=== PATIENT | female | born 1960 ===

== ENCOUNTER 2025-08-27 06:38 | Day surgery (SDC) | payer OTHER, SELFPAY ==
[2025-08-14 10:49] LABS: Hematocrit 42.6 % (37.0-47.0); Hemoglobin 13.4 g/dL (12.0-16.0); Mean Corp Hgb Conc. 31.5 g/dL (33.0-37.0); Mean Corpuscular Volume 87.7 fL (81.0-99.0); Platelet Count 355 10^3/uL (130-400); Red Cell Dist. Width 12.7 % (11.5-14.5)
[2025-08-14 11:40] LABS: ALT (SGPT) 16 U/L (0-35); AST (SGOT) 20 U/L (14-36); Albumin 4.8 g/dl (3.5-5.0); Alkaline Phosphatase 81 U/L (38-126); Blood Urea Nitrogen 12 mg/dl (7-17); Calcium 10.4 mg/dl (8.4-10.2); Carbon Dioxide 27 mmol/L (22-30); Chloride 105 mmol/L (98-107); Glucose 90 mg/dl (70-99); Potassium 5.3 mmol/L (3.5-5.1); Sodium 137 mmol/L (135-145); Total Protein 7.8 g/dl (6.3-8.2); eGFR > 60.00
[2025-08-14 13:55] VITALS: BMI 24.5
[2025-08-27] VITALS (16 sets, daily range): BP systolic 94–122; BP diastolic 56–84; BMI 24.5
[2025-08-27] MEDS: TYLENOL 1000 MG PO (12:43)
--- NOTE | 2025-08-27 12:55 | HP.FOC2 ---
Focused History & Physical
Chief Complaint
HPI:
Chief Complaint: Symptomatic cholelithiasis
HPI / Indication for Planned Procedure: Patient is a 65-year-old female who this past December awoke from sleep at 2 AM with acute onset of severe epigastric abdominal pain bandlike in the upper abdomen. Emergency department evaluation was notable for
cholelithiasis without biliary ductal dilation. 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 Upper endoscopy identified a small hiatal hernia. In the setting of her episode of symptomatic cholelithiasis patient
presents today for laparoscopic cholecystectomy.
Relevant Past Medical History: Other (Hypertension, hypercholesterolemia, GERD)
Relevant Social History: Negative
Relevant Family History: Negative
Relevant Past Surgical History: Positive for (Tubal ligation, tonsillectomy, repair right wrist nerve)
Review of Systems
Review of Pertinent Systems: All Systems Negative
Medication
See Medication form for detailed medications: Yes
Medication List (including Herbals & OTC):
amlodipine 2.5 mg tablet 2.5 mg PO BID 08/20/25
cholecalciferol (vitamin D3) 1,250 mcg (50,000 unit) tablet 1,250 mcg PO SA 08/20/25
ezetimibe 10 mg tablet (Zetia) 10 mg PO QPM 08/20/25
metoclopramide HCl 5 mg tablet (Reglan) 5 mg PO BID 08/20/25
pantoprazole 40 mg tablet,delayed release (Protonix) 40 mg PO DAILY 08/20/25
vit C 250 mg-vit E 90 mg-zinc 40 mg-copper 1 [id number] capsule (PreserVision AREDS-2) 1 tab PO HS 08/20/25
Medications Reviewed: Yes
Allergies and Reactions
Patient has Allergies: No
Noted Allergies and Reactions:
Allergy/AdvReac Type Severity Reaction Status Date / Time
No Known Allergies Allergy Unverified 08/27/25 12:34
Pertinent Physical Exam
All Other Systems: Negative
Head/Neck: Normal
Lungs: Normal
Heart: Normal
Abdomen: Normal
Extremities: Normal
Neurological: Normal
Diagnosis / Assessment
65-year-old female presenting for cholecystectomy for management of symptomatic cholelithiasis
Plan / Procedure
Laparoscopic cholecystectomy with cholangiogram
Anesthesia/Sedation to be done by Anesthesia Provider: Yes
[2025-08-27] MEDS: NORMOSOL-R/PLASMALYTE-A 1000 IV (12:57)
--- NOTE | 2025-08-27 13:01 | W.SUR.PREOP ---
Pre-Operative Surgical Note
-
I have examined this patient prior to the performance of the scheduled procedure.
The patient's condition is unchanged from the time of the current History and
Physical and the patient is able to undergo the scheduled procedure.
--- NOTE | 2025-08-27 14:45 | W.IMMPOSTOP ---
Addendum entered and electronically signed by Edenilson Alberto MD 08/27/25 14:56:
#[id number]
Original Note:
Surgical Immed Post Op Note
-
Primary Surgeon: Edenilson Alberto MD
Assisting Surgeon: Geno Morales NP
Pre-op Diagnosis: Symptomatic cholelithiasis
Post-op Diagnosis: Symptomatic cholelithiasis
Procedure Performed: Laparoscopic cholecystectomy with intraoperative cholangiogram
Anesthesia Type: GETA +0.25% Marcaine with epi
Specimen / Cultures: Gallbladder
Estimated Blood Loss: 4 mL
Complications: None immediate
Operative Findings: Physiologically distended gallbladder with stones. Filmy adhesions to the body and infundibulum consistent with probable chronic calculous cholecystitis. Intraoperative cholangiogram normal. Gallbladder removed intact and
extracted at epigastric 12 mm trocar site
The assistance of Geno Morales NP was required due to the complexity of the procedure. During the procedure Geno Morales NP assisted with managing the laparoscope for visualization, gallbladder retraction to assist with exposure, and
closure of the incision sites.
[2025-08-27] MEDS: DILAUDID 0.5 MG IV (14:58)
[2025-08-27] MEDS: ZOFRAN 4 MG IV (15:45)
[2025-08-27] MEDS: COMPAZINE 5 MG IV (16:17)
== END 2025-08-27 18:01 | disposition home or self-care (01) ==
LOC: SDS 06:38
PROVIDERS: ATTENDING PHYSICIAN Surgery; FAMILY PHYSICIAN Internal Medicine
DX: K80.10 Calculus of gallbladder with chronic cholecystitis without obstruction (principal)
CPT/HCPCS: 47563; 36415; 74300; 76000; 80053; 85027; 88304; 93005; A4300